=== PATIENT | male | born 1930 | race Caucasian/White ===

== ENCOUNTER → 2016-11-08 | Outpatient (CLI) | payer OTHER ==
[2016-11-08 14:38] LABS: Basophils # (auto) 0 uL; Basophils % (auto) 0.6 % (0.0-2.0); DEFINITIVE Y; Eosinophils # (auto) 0 uL; Eosinophils % (auto) 0.5 % (0.0-7.0); Hemoglobin 13.5 g/dL (13.5-17.5); Lymphocytes # (auto) 0.4 uL; Lymphocytes % (auto) 10.4 % (10.0-50.0); Mean Corpuscular Hemoglobin 38.6 pg (28.0-32.0); Mean Corpuscular Hgb Conc. 33.8 g/dL (32.0-36.0); Mean Corpuscular Volume 114.3 fL (80.0-100.0); Mean Platelet Volume 8.2 fL (7.4-10.4); Monocytes # (auto) 0.6 uL; Monocytes % (auto) 15.8 % (0.0-12.0); Neutrophils % (auto) 72.7 % (37.0-80.0); Platelet Count (auto) 232 10^3/uL (140-450); White Blood Cell 4.1 10^3/uL (4.4-10.8)
[2016-11-08 14:59] LABS: B-Type Natriuretic Peptide 75.6 pg/mL (0-100)
[2016-11-08 15:00] LABS: Albumin 3.8 g/dL (3.4-5.0); BUN/Creatinine Ratio 20.5; Bilirubin, Total 1.1 mg/dL (0.2-1.0); Calcium 9.2 mg/dL (8.5-10.1); Potassium 4.2 mmol/L (3.5-5.1); Total Protein 6.7 g/dL (6.4-8.2)
[2016-11-08 15:10] LABS: Temperature: 23.1 C (20.0-25.0)
== END | disposition home or self-care (01) ==
LOC: LAB 13:40
PROVIDERS: ATTEND Internal Medicine
DX: R60.9 Edema, unspecified (principal); E56.9 Vitamin deficiency, unspecified
CPT/HCPCS: 36415; 80053; 82306; 82607; 83880; 84153; 84439; 84443; 85025; 85379; 85652

== ENCOUNTER → 2016-12-07 | Outpatient (CLI) | payer OTHER | END | disposition home or self-care (01) | LOC: XYW 11:02 | PROVIDERS: ATTEND Internal Medicine | DX: I50.9 Heart failure, unspecified (principal) | CPT/HCPCS: 93306 ==

== ENCOUNTER 2017-04-07 09:46 | Emergency (ER) | payer OTHER ==
[~2017-04-07] VITALS: Ht 188 cm; Wt 68.0 kg
[2017-04-07] MEDS ORDERED: SODIUM CHLORIDE 0.9% 1,000 ML IV ONE ×2 (10:00)
[2017-04-07] MEDS ORDERED: ONDANSETRON HCL 4 MG/2 ML VIAL IV ONE ×2 (10:00→17:00)
[2017-04-07] MEDS ORDERED: PROMETHAZINE HCL 25 MG/ML 1ML IV ONE ×2 (11:00→16:30)
[2017-04-07 11:17] LABS: Basophils # (auto) 0 uL; Eosinophils # (auto) 0 uL; Eosinophils % (auto) 0.2 % (0.0-7.0); Lymphocytes # (auto) 0.3 uL
[2017-04-07 11:19] LABS: Basophils % (auto) 0.3 % (0.0-2.0); Hematocrit 40.9 % (41.0-53.0); Hemoglobin 14.3 g/dL (13.5-17.5); Lymphocytes % (auto) 3.1 % (10.0-50.0); Mean Corpuscular Hgb Conc. 34.9 g/dL (32.0-36.0); Mean Corpuscular Volume 114.7 fL (80.0-100.0); Mean Platelet Volume 8.1 fL (6.9-10.8); Monocytes # (auto) 0.7 uL; Monocytes % (auto) 7.4 % (0.0-12.0); Nucleated Red Blood Cells % 0.1 %; Platelet Count (auto) 157 10^3/uL (140-450); Red Cell Distribution Width 13.5 % (11.8-14.3)
[2017-04-07 11:32] LABS: Alkaline Phosphatase 87 U/L (45-117); Anion Gap 16 (5-15); Aspartate Aminotransferase 63 U/L (15-37); BUN/Creatinine Ratio 16.1; Bilirubin, Total 1.3 mg/dL (0.2-1.0); Blood Urea Nitrogen 14 mg/dL (7-18); Calcium 9.2 mg/dL (8.5-10.1); Carbon Dioxide 21 mmol/L (21-32); Chloride 103 mmol/L (98-107); GFR African American 107 mL/min; GFR Non-African American 88 mL/min; Glucose 62 mg/dL (74-106); Potassium 3.7 mmol/L (3.5-5.1); Sodium 140 mmol/L (136-145); Total Protein 6.9 g/dL (6.4-8.2)
[2017-04-07] MEDS ORDERED: cefTRIAXone 1GM/50ML D5W 50 ML IV ONE (12:15)
[2017-04-07 13:05] LABS: Urine Bilirubin Negative (Negative); Urine Blood Negative /uL (Negative); Urine Color Yellow (Yellow); Urine Glucose Normal (Normal); Urine Ketone 2+ (Negative); Urine Mucus FEW (None Seen); Urine Nitrite POSITIVE (Negative); Urine RBC <1 /hpf (0 - 3); Urine Squamous Epithelial Cell FEW /hpf (<5); Urine Urobilinogen Normal (Negative)
[2017-04-07 15:13] VITALS: BP 138/71
[2017-04-07] MEDS ORDERED: ONDANSETRON ODT 4 MG TAB PO ONE (18:00)
== END 2017-04-07 18:34 | disposition home or self-care (01) ==
LOC: EDBD 09:46 → ER 09:46
DX: K52.9 Noninfective gastroenteritis and colitis, unspecified (principal); N39.0 Urinary tract infection, site not specified
CPT/HCPCS: 36415; 74176; 80053; 81001; 84484; 85025; 93005; 93970; 96361; 96365; 96375; 99285; J0696; J2550; J7030; Q0162

== ENCOUNTER 2017-08-03 12:00 | Inpatient (IN) | payer OTHER ==
[~2017-08-03] VITALS: Ht 188 cm; Wt 70.0 kg
[2017-08-03 13:03] LABS: Basophils # (auto) 0 uL; Eosinophils # (auto) 0 uL; Monocytes # (auto) 0.9 uL; White Blood Cell 6.6 10^3/uL (4.4-10.8)
[2017-08-03 13:05] LABS: Basophils % (auto) 0.3 % (0.0-2.0); Eosinophils % (auto) 0.5 % (0.0-7.0); Hematocrit 40.9 % (41.0-53.0); Hemoglobin 14.2 g/dL (13.5-17.5); Lymphocytes # (auto) 0.3 uL; Lymphocytes % (auto) 4.8 % (10.0-50.0); Mean Corpuscular Hemoglobin 39.1 pg (28.0-32.0); Mean Corpuscular Hgb Conc. 34.7 g/dL (32.0-36.0); Mean Corpuscular Volume 112.5 fL (80.0-100.0); Monocytes % (auto) 13.3 % (0.0-12.0); Neutrophils # (auto) 5.4 uL; Neutrophils % (auto) 81.1 % (37.0-80.0); Platelet Count (auto) 188 10^3/uL (140-450); Red Blood Cells 3.64 10^6/uL (4.5-5.90); Red Cell Distribution Width 12.6 % (11.8-14.3)
[2017-08-03 13:47] LABS: Albumin 3.8 g/dL (3.4-5.0); BUN/Creatinine Ratio 19.1; Calcium 9.1 mg/dL (8.5-10.1)
[2017-08-03 13:50] LABS: Total Protein 6.9 g/dL (6.4-8.2)
[2017-08-03 13:59] LABS: Lactic Acid w/Reflex 2.4 mmol/L (0.4-2.0)
[2017-08-03] MEDS ORDERED: SODIUM CHLORIDE 0.9% 1,000 ML IV ONE ×2 (15:16)
[2017-08-03] MEDS ORDERED: chlordiazePOXIDE HCL 25 MG CAP PO PRN (15:45)
[2017-08-03] MEDS ORDERED: CLINDAMYCIN 900MG IV 50 ML IV ONE (15:45)
[2017-08-03] MEDS ORDERED: MORPHINE SULFATE 4 MG/ML SYR/VIAL IV PRN (15:45)
[2017-08-03] MEDS ORDERED: ACETAMINOPHEN 500 MG TAB PO PRN (15:45)
[2017-08-03] MEDS ORDERED: LORazepam 0.5 MG TAB PO PRN (15:45)
[2017-08-03] MEDS ORDERED: PROMETHAZINE HCL 25 MG/ML 1ML IV PRN (15:45)
[2017-08-03] MEDS ORDERED: LACTULOSE 20Gm/30ML SOLN PO PRN (15:45)
[2017-08-03] MEDS ORDERED: TEMAZEPAM 15 MG CAP PO PRN (15:45)
[2017-08-03] MEDS ORDERED: NITROGLYCERIN 0.4 MG SL TAB SL PRN (15:45)
[2017-08-03] MEDS ORDERED: THIAMINE HCL 100 MG TAB PO SCH (16:26)
[2017-08-03] MEDS ORDERED: THIAMINE HCL 100 MG TAB PO ONE (16:30)
[2017-08-03] MEDS: cefTRIAXone 1GM/10ml IVPUSH 10 ML IV SCH (17:50)
[2017-08-03] MEDS: chlordiazePOXIDE HCL 5 MG CAP PO SCH (18:06)
[2017-08-03 18:20] LABS: Urine Bacteria NONE SEEN /hpf (None Seen); Urine Blood Negative /uL (Negative); Urine Specific Gravity 1.019 (1.001-1.035); Urine WBC 1 /hpf (0 - 3)
[2017-08-03 22:00] VITALS: BP 140/75
[2017-08-03] MEDS ORDERED: PRED1SUS3 OP (22:37)
[2017-08-03 22:41] VITALS: BP 140/75
[2017-08-04] MEDS: CLINDAMYCIN 600MG IV 50 ML IV SCH ×4 (00:15→23:50)
[2017-08-04] MEDS: chlordiazePOXIDE HCL 5 MG CAP PO SCH ×3 (00:15→11:31)
[2017-08-04 04:41] VITALS: BP 122/71
[2017-08-04 08:00] VITALS: BP 150/92
[2017-08-04 09:00] VITALS: BP 127/74
[2017-08-04] MEDS: THIAMINE HCL 100 MG TAB PO SCH (09:47)
[2017-08-04] MEDS: PANTOPRAZOLE 40 MG TAB PO SCH (09:47)
[2017-08-04] MEDS: POTASSIUM CHL 20 Meq TABLET PO SCH (09:47)
[2017-08-04] MEDS: FUROSEMIDE 40 MG/4 ML VIAL IV SCH (09:48)
[2017-08-04] MEDS: cefTRIAXone 1GM/10ml IVPUSH 10 ML IV SCH (09:48)
[2017-08-04] MEDS ORDERED: ENOXAPARIN SOD 40 MG/0.4 ML SYRINGE SC SCH (10:00)
[2017-08-04 13:00] VITALS: BP 136/76
[2017-08-04 17:19] VITALS: BP 126/75
[2017-08-04 22:00] VITALS: BP_SYST 129; BP_SYST 132; BP_DIAS 67; BP_DIAS 79
[2017-08-05 05:00] VITALS: BP 125/74
[2017-08-05] MEDS: CLINDAMYCIN 600MG IV 50 ML IV SCH ×3 (08:09→23:45)
[2017-08-05] MEDS: HYDROcodone-ACET 5/325MG TAB PO PRN (08:10)
[2017-08-05 08:30] VITALS: BP 123/62
[2017-08-05 09:00] VITALS: BP 123/62
[2017-08-05] MEDS: POTASSIUM CHL 20 Meq TABLET PO SCH (10:16)
[2017-08-05] MEDS: FUROSEMIDE 40 MG/4 ML VIAL IV SCH (10:16)
[2017-08-05] MEDS: cefTRIAXone 1GM/10ml IVPUSH 10 ML IV SCH (10:16)
[2017-08-05] MEDS: THIAMINE HCL 100 MG TAB PO SCH (10:16)
[2017-08-05] MEDS: PANTOPRAZOLE 40 MG TAB PO SCH (10:17)
[2017-08-05 13:00] VITALS: BP 106/57
[2017-08-05 17:00] VITALS: BP 131/67
[2017-08-05 22:00] VITALS: BP 119/70
[2017-08-05] MEDS: LACHYDRIN TOP SCH (22:00)
[2017-08-06 05:00] VITALS: BP 129/77
[2017-08-06] MEDS: CLINDAMYCIN 600MG IV 50 ML IV SCH ×3 (07:59→23:56)
[2017-08-06] MEDS: HYDROcodone-ACET 5/325MG TAB PO PRN (07:59)
[2017-08-06 08:00] VITALS: BP 116/68
[2017-08-06 08:18] VITALS: BP 116/68
[2017-08-06] MEDS: LACHYDRIN TOP SCH ×2 (10:00→22:00)
[2017-08-06] MEDS: cefTRIAXone 1GM/10ml IVPUSH 10 ML IV SCH (10:13)
[2017-08-06] MEDS: FUROSEMIDE 40 MG/4 ML VIAL IV SCH (10:14)
[2017-08-06] MEDS: PANTOPRAZOLE 40 MG TAB PO SCH (10:14)
[2017-08-06] MEDS: POTASSIUM CHL 20 Meq TABLET PO SCH (10:14)
[2017-08-06] MEDS: THIAMINE HCL 100 MG TAB PO SCH (10:14)
[2017-08-06 12:00] VITALS: BP 120/71
[2017-08-06 16:52] VITALS: BP 123/71
[2017-08-06] MEDS: prednisoLONE ACETATE 1% OPTH SUSP 5ML OP SCH (18:51)
[2017-08-06 22:00] VITALS: BP 125/76
[2017-08-07 05:00] VITALS: BP 122/71
[2017-08-07] MEDS: HYDROcodone-ACET 5/325MG TAB PO PRN ×4 (07:53→19:24)
[2017-08-07 08:00] VITALS: BP 113/62
[2017-08-07] MEDS: cefTRIAXone 1GM/10ml IVPUSH 10 ML IV SCH (09:12)
[2017-08-07] MEDS: CLINDAMYCIN 600MG IV 50 ML IV SCH (09:12)
[2017-08-07] MEDS: MORPHINE SULFATE 4 MG/ML SYR/VIAL IV PRN ×2 (09:43→18:04)
[2017-08-07] MEDS: LACHYDRIN TOP SCH ×2 (10:00→22:00)
[2017-08-07] MEDS: prednisoLONE ACETATE 1% OPTH SUSP 5ML OP SCH (10:00)
[2017-08-07] MEDS: POTASSIUM CHL 20 Meq TABLET PO SCH (10:29)
[2017-08-07] MEDS: PANTOPRAZOLE 40 MG TAB PO SCH (10:29)
[2017-08-07] MEDS: FUROSEMIDE 40 MG/4 ML VIAL IV SCH (10:29)
[2017-08-07] MEDS: THIAMINE HCL 100 MG TAB PO SCH (10:29)
[2017-08-07 12:00] VITALS: BP 124/70
[2017-08-07] MEDS ORDERED: CARISOPRODOL 350 MG TAB PO ONE (12:00)
[2017-08-07 16:52] VITALS: BP 124/69
[2017-08-07] MEDS: CLINDAMYCIN HCL 150 MG CAP PO SCH ×2 (18:04→22:06)
[2017-08-07 20:00] VITALS: BP 123/72
[2017-08-07 21:56] VITALS: BP 123/72
[2017-08-08 05:00] VITALS: BP 119/71
[2017-08-08] MEDS: CLINDAMYCIN HCL 150 MG CAP PO SCH (06:18)
[2017-08-08 08:28] VITALS: BP 118/72
[2017-08-08] MEDS: LACHYDRIN TOP SCH (09:28)
[2017-08-08] MEDS: POTASSIUM CHL 20 Meq TABLET PO SCH (09:45)
[2017-08-08] MEDS: PANTOPRAZOLE 40 MG TAB PO SCH (09:45)
[2017-08-08] MEDS: THIAMINE HCL 100 MG TAB PO SCH (09:45)
[2017-08-08] MEDS: prednisoLONE ACETATE 1% OPTH SUSP 5ML OP SCH (09:46)
[2017-08-08] MEDS: cefTRIAXone 1GM/10ml IVPUSH 10 ML IV SCH (09:46)
[2017-08-08] MEDS ORDERED: FUROSEMIDE 40 MG TAB PO SCH (10:00)
[2017-08-08 11:25] VITALS: BP 117/74
== END 2017-08-08 13:30 | disposition home or self-care (01) | DRG 602 ==
LOC: ER 12:04 → TELE 12:05 → MERGE 12:05 → TELE-WESTW 21:49 → WEST WING 08-04 13:18
PROVIDERS: ADMIT Internal Medicine; ATTEND Internal Medicine
DX: L03.116 Cellulitis of left lower limb (principal); I50.33 Acute on chronic diastolic (congestive) heart failure; E87.2 Acidosis; D64.9 Anemia, unspecified; I35.1 Nonrheumatic aortic (valve) insufficiency; L03.115 Cellulitis of right lower limb; F10.10 Alcohol abuse, uncomplicated; H35.30 Unspecified macular degeneration; K44.9 Diaphragmatic hernia without obstruction or gangrene; M47.816 Spondylosis without myelopathy or radiculopathy, lumbar region; K57.30 Diverticulosis of large intestine without perforation or abscess without bleeding; K59.00 Constipation, unspecified; F41.9 Anxiety disorder, unspecified; G47.00 Insomnia, unspecified; K76.0 Fatty (change of) liver, not elsewhere classified; N20.0 Calculus of kidney; Z79.899 Other long term (current) drug therapy
CPT/HCPCS: 36415; 70450; 71045; 72131; 74176; 80053; 81001; 83605; 83880; 84443; 84484; 85025; 85652; 87040; 93005; 93306; 93970; 96361; 96365; 96375; J3490